=== PATIENT | male | born 1955 | race Caucasian/White ===

== ENCOUNTER 2023-10-01 09:59 | Emergency (ER) | payer MEDICARE, OTHER ==
[2023-10-01] MEDS: Sodium Chloride 0.9% 1,000 ML IV SCH (11:33)
[2023-10-01 11:35] LABS: BASOPHILS PERCENT AUTO 0.4 % (0.1-1.3); HEMATOCRIT 43.6 % (38.4-49.7); HEMOGLOBIN 15.7 g/dL (12.9-16.9); IMMATURE GRAN PERCENT AUTO 0.7 % (0.0-0.7); LYMPHOCYTES ABSOLUTE AUTO 0.73 K/uL (0.8-3.3); LYMPHOCYTES PERCENT AUTO 26.2 % (11.4-47.7); MEAN CORPUSCULAR HEMOGLOBIN 30.4 pg (31.6-35.5); MEAN CORPUSCULAR VOLUME 84.3 fL (81.4-99.0); MONOCYTES PERCENT AUTO 7.2 % (3.3-12.6); NEUTROPHILS ABSOLUTE AUTO 1.83 K/uL (1.0-7.6); NEUTROPHILS PERCENT AUTO 65.5 % (40.0-78.1); PLATELET COUNT,PLT 71 K/uL (130-375); RED BLOOD CELL COUNT 5.17 M/uL (4.14-5.76); WHITE BLOOD CELL COUNT,WBC 2.8 K/uL (3.2-11.0)
[2023-10-01 11:37] LABS: BASOPHILS ABSOLUTE AUTO 0.01 K/uL (0.00-0.10); IMMATURE GRAN ABSOLUTE AUTO 0.02 K/uL (0.00-0.23)
[2023-10-01 11:40] LABS: APPEARANCE,URINE CLEAR (CLEAR); BILIRUBIN,URINE SMALL (NEGATIVE); COLOR,URINE YELLOW (YELLOW); GLUCOSE,URINE 500 mg/dL (NEGATIVE); KETONES,URINE 80 mg/dL (NEGATIVE); LEUKOCYTE ESTERASE,URINE NEGATIVE (NEGATIVE); NITRITE,URINE NEGATIVE (NEGATIVE); OCCULT BLOOD,URINE TRACE-LYSED (NEGATIVE); PH,URINE 5.5 (5.0-8.0); PROTEIN,URINE 30 mg/dL (NEGATIVE); UROBILINOGEN,URINE 0.2 EU/dL (0.2-1.0)
[2023-10-01 11:47] LABS: C-REACTIVE PROTEIN 7.98 mg/dL (<0.50)
[2023-10-01 11:50] LABS: BACTERIA,URINE NOT SEEN; EPITHELIAL CELLS,URINE NOT SEEN; RBC,URINE NOT SEEN (0-5); WBC,URINE NOT SEEN (0-5)
[2023-10-01 11:56] LABS: A/G RATIO 0.9 (1.2-2.2); ALANINE AMINOTRANSFERASE,ALT 125 U/L (12-78); ALBUMIN 3.4 g/dL (3.4-5.0); ALKALINE PHOSPHATASE 120 U/L (46-116); ASPARTATE AMNIOTRANSFERASE,AST 75 U/L (15-37); BILIRUBIN TOTAL 1.7 mg/dL (0.2-1.0); BLOOD UREA NITROGEN,BUN 30 mg/dL (7-18); CALCIUM 9.7 mg/dL (8.5-10.1); CARBON DIOXIDE,CO2 19 mmol/L (21-32); CHLORIDE,CL 100 mmol/L (100-108); CREATININE 1.1 mg/dL (0.8-1.3); EST CRCL DRUG DOSING (CG) 68.21 mL/min; ESTIMATED GFR 74 mL/min (>60); GLUCOSE RANDOM 125 mg/dL (74-106); POTASSIUM,K 3.8 mmol/L (3.6-5.2); PROTEIN TOTAL,TP 7.4 g/dL (6.4-8.2); SODIUM,NA 133 mmol/L (140-148)
[2023-10-01 11:57] LABS: ANION GAP 17.8 mmol/L (5.0-14.0); TROPONIN I HIGH SENSITIVITY < 4.0 pg/mL (<=60.3)
[2023-10-01 12:21] LABS: CORONAVIRUS COVID-19 NAA NEGATIVE (NEGATIVE); INFLUENZA A NAA NEGATIVE (NEGATIVE); INFLUENZA B NAA NEGATIVE (NEGATIVE); RESPIRATORY SYNCYTIAL VIR NAA NEGATIVE (NEGATIVE)
[2023-10-01] MEDS: Alum Hydrox/Mag Hydrox/Simeth 15 ML, Lidocaine 2% 15 ML PO ONE (12:26)
[2023-10-01] MEDS: Sodium Chloride 0.9% 10 ML Syringe FLUSH PRN (12:27)
[2023-10-01 12:29] LABS: LYME AB IgG Negative (Negative)
[2023-10-01 12:30] LABS: LYME AB IgM Negative (Negative)
[2023-10-01] MEDS: Doxycycline 100 MG Cap PO ONE (13:29)
[2023-10-05 04:58] LABS: WEST NILE VIRUS AB, IGG, SER 0.14 IV (<=1.29); WEST NILE VIRUS AB, IGM, SER 0.03 IV (<=0.89)
[2023-10-05 11:44] LABS: ANAPLASMA PHAGOCYTOPHILUM PCR Detected; BABESIA MICROTI BY PCR Not Detected; BABESIA SPECIES BY PCR Not Detected; EHRLICHIA CHAFFEENSIS BY PCR Not Detected; EHRLICHIA EWINGII/CANIS BY PCR Not Detected; EHRLICHIA MURIS-LIKE BY PCR Not Detected
== END 2023-10-01 13:37 | disposition home or self-care (01) ==
LOC: JP.ED 09:59 → EDSEX 09:59 → JP.ED 13:37
DX: E80.6 Other disorders of bilirubin metabolism (principal); D70.9 Neutropenia, unspecified; R53.83 Other fatigue; E78.00 Pure hypercholesterolemia, unspecified; E11.9 Type 2 diabetes mellitus without complications; I10 Essential (primary) hypertension; Z88.8 Allergy status to other drugs, medicaments and biological substances; Z79.82 Long term (current) use of aspirin; Z79.899 Other long term (current) drug therapy; Z79.84 Long term (current) use of oral hypoglycemic drugs
CPT/HCPCS: 0241U; 36415; 71045; 80053; 81001; 82150; 82550; 83690; 84484; 85025; 86140; 86618; 86788; 86789; 87468; 87469; 87484; 87798; 93005; 96360; 96361; 99284; A9270; J3490; J7030